=== PATIENT | female | born 1980 | race Caucasian/White ===

== ENCOUNTER 2022-09-27 08:04 | Emergency (ER) | payer OTHER, SELFPAY ==
[2022-09-27 08:15] VITALS: BP 110/57; PULSE 79; RESP 16; TEMP 36.6; O2SAT 100
--- NOTE | 2022-09-27 08:16 | ED.URI ---
HPI - URI/Sore Throat General Chief Complaint: Upper Respiratory Infection Stated Complaint: white spots on throat, sore throat Time Seen by Provider: 09/27/22 08:16 Source: patient Mode of arrival: ambulatory Limitations: no limitations History of Present Illness HPI Narrative: 42-year-old female presents with complaint of sore throat starting yesterday morning. Woke up today with neck pain, swollen glands. Positive fatigue. Afebrile. Denies nausea vomiting diarrhea. All systems reviewed and negative except as noted above. Related Data Home Medications Medication Instructions Recorded Confirmed buspirone 7.5 mg tablet 7.5 mg PO DAILY 09/27/22 09/27/22 Allergies Allergy/AdvReac Type Severity Reaction Status Date / Time No Known Allergies Allergy Unverified 09/27/22 08:13 Review of Systems Review of Systems: CONSTITUTIONAL: Denies fever, chills, or sweats. Reports fatigue. EYES: Denies visual changes, redness, or discharge. ENT: Denies rhinorrhea, congestion. Reports sore throat. Denies otalgia. CARDIOVASCULAR: Denies chest pain, palpitations, or edema. RESPIRATORY: Denies cough or dyspnea. GASTROINTESTINAL: Denies abdominal pain, nausea, vomiting, or diarrhea. GENITOURINARY: Denies dysuria or hematuria. SKIN: Denies rash or itching. MUSCULOSKELETAL: Denies back pain, joint pain, or myalgia. NEUROLOGIC: Denies headache, numbness, or weakness. PSYCHIATRIC: Denies anxiety or depression. All other systems reviewed are negative, except as documented in HPI. [facility] Past Medical History Medical History (Updated 09/27/22 @ 08:26 by Amisha Babin NP) Psoriasis (a type of skin inflammation) Surgical History Surgical History (Updated 08/22/19 @ 15:59 by Amy Israel) H/O dilation and curettage H/O eye surgery Social History Social History (Updated 08/22/19 @ 16:00 by Amy Israel) Smoking status: Never smoker Alcohol intake: current Comments At time of signature, agree with nursing past medical, surgical, social and family history. There is no relevant family history pertinent to the presenting complaint. Exam Narrative: GENERAL: This is a well-nourished, well-developed patient, in no apparent distress. HEAD: normocephalic, atraumatic. EYES: PERRL. Sclera clear/white. Vision is grossly intact. EARS: External ears normal, auditory canals clear and without drainage, TMs normal without perforation. Hearing grossly intact. NOSE: External nose normal with no obvious nasal discharge, nares without redness, no rhinorrhea. THROAT: Mucous membranes moist, erythema, exudates, tonsils 1+ bilaterally. NECK: Neck supple, non-tender without lymphadenopathy, masses or thyromegaly. CARDIOVASCULAR: Regular rate and rhythm without murmurs, gallops, or rubs. RESPIRATORY: Clear to auscultation. Breath sounds equal bilaterally. No wheezes, rales, or rhonchi. SKIN: warm, Dry, intact with no suspicious lesions or rash, good texture and turgor. NEURO: awake, alert, and oriented to person, place and time. There were no obvious focal neurologic abnormalities. EXTREMITIES: No joint tenderness, effusion, or edema noted. Course Course Level of Care: Express Care Visit Vital Signs Vital signs: Vital Signs Temperature 36.6 C 09/27/22 08:15 Pulse Rate 79 09/27/22 08:15 Respiratory Rate 16 09/27/22 08:15 Blood Pressure 110/57 L 09/27/22 08:15 Pulse Oximetry 100 09/27/22 08:15 Temperature 36.6 C 09/27/22 08:15 Pulse Rate 79 09/27/22 08:15 Respiratory Rate 16 09/27/22 08:15 Blood Pressure 110/57 L 09/27/22 08:15 Pulse Oximetry 100 09/27/22 08:15 Reviewed MDM - URI/Sore Throat MDM Narrative Medical decision making narrative: Patient is aware of diagnosis, understands and agrees to treatment plan. Anticipatory guidance given. Patient agrees to follow-up as directed and is aware of reasons to seek care at the emergency department. Portions of this record may have be
== END 2022-09-27 08:29 | disposition home or self-care (01) ==
PROVIDERS: Emergency Provider Nurse Practitioner Family
DX: J02.0 Streptococcal pharyngitis (principal)
CPT/HCPCS: 87880; 99203; G0463

== ENCOUNTER 2023-02-24 10:55 | Emergency (ER) | payer OTHER, SELFPAY ==
--- NOTE | 2023-02-24 10:56 | ED.FEMALEGU ---
HPI - Female Genitourinary General Chief complaint: Urogenital-Female Stated complaint: Painful & frequent urination; UTI? Time Seen by Provider: 02/24/23 10:56 Source: patient Mode of arrival: ambulatory Limitations: no limitations History of Present Illness HPI Narrative: Kristal is a 42-year-old female patient presenting to the clinic today with complaints of painful and frequent urination x 1 day. Just started her menses today. No known fever or chills. Denies any abdominal pain or flank pain. Related Data Home Medications Medication Instructions Recorded Confirmed buspirone 7.5 mg tablet 7.5 mg PO DAILY 09/27/22 02/24/23 ferrous sulfate 325 mg (65 mg 325 mg PO DAILY 02/24/23 02/24/23 iron) tablet (FeroSul) Allergies Allergy/AdvReac Type Severity Reaction Status Date / Time No Known Allergies Allergy Unverified 02/24/23 11:03 Review of Systems Review of Systems: Pertinent positives per HPI. Patient denies any fever, chills, rash, headache, visual changes, dizziness, cough, runny nose, sore throat, shortness of breath, chest pain, palpitations, nausea, vomiting, diarrhea, constipation, abdominal pain. PMFSH Past Medical History Medical History Psoriasis (a type of skin inflammation) Surgical History Surgical History H/O dilation and curettage H/O eye surgery Social History Social History Smoking status: Never smoker Alcohol intake: current Comments At the time of my signature, I reviewed and agree with the nursing past medical, surgical, social, and family history. There is no relevant family history pertinent to the patient complaint. Exam Narrative: General: Well-developed, well nourished, in no apparent distress. Head: Normocephalic, atraumatic. Cardio: Regular rate and rhythm, s1 and s2 normal, no murmur appreciated. Resp: Clear to auscultation bilaterally, no rhonchi, rales, wheezing or rubs. Abdomen: Soft, pliable, bowel sounds present in all quadrants, non-tender to palpation, no organomegly, no CVAT tenderness. Course Course Emergency Course: Portions of this record may have been created with voice recognition software. Level of Care: Express Care Visit Vital Signs Vital signs: Vital signs reviewed MDM - Female Genitourinary MDM Narrative Medical decision making narrative: At the time of visit patient is resting comfortably on the exam table. UA shows 2+ leukocytes and 3+ blood. Patient is currently on her menses. Will send in prescription for Bactrim and Pyridium. Supportive measures were discussed with the patient she voiced understanding discharge instructions and agrees to treatment plan. Differential Diagnosis Differential diagnosis: Likely urinary tract infection, cystitis and other (Pyelonephritis) Discharge Plan Discharge Clinical Impression: Urinary tract infection Qualifiers: Urinary tract infection type: acute cystitis Hematuria presence: with hematuria Qualified Code(s): N30.01 - Acute cystitis with hematuria Patient Disposition: Home, Self-Care Condition: Stable Instructions: Antibiotic Form, Urinary Tract Infection in Women (ED) Additional Instructions: UA dip positive for 2+ leukocytes and 3+ blood-patient currently on menses. Will send for culture Take Bactrim ds 1 tab every 12 hours x7 days Take Pyridium 1 tab every 8 hours as needed for bladder pain Increase fluids and stay well hydrated Wipe front to back. May use wet wipes. Avoid tub baths If sexually active- pee before and after intercourse. Wear cotton panties Avoid tight clothing up against the genitals Follow up with your PCP in 1 week if symptoms persist. Prescriptions: New sulfamethoxazole-trimethoprim [Bactrim DS] 800-160 mg tablet 1 tablet PO Q12H 7 Days
[2023-02-24 11:05] VITALS: BP 106/91; PULSE 73; RESP 16; TEMP 36.4; O2SAT 100
== END 2023-02-24 11:16 | disposition home or self-care (01) ==
PROVIDERS: Emergency Provider Nurse Practitioner Family; PCP Hospitalist
DX: N30.01 Acute cystitis with hematuria (principal); L40.9 Psoriasis, unspecified
CPT/HCPCS: 81003; 87077; 87086; 87186; 99213; G0463

== ENCOUNTER 2023-07-18 08:06 | Emergency (ER) | payer OTHER, SELFPAY ==
--- NOTE | 2023-07-18 08:14 | ED.URI ---
HPI - URI/Sore Throat General Chief Complaint: Upper Respiratory Infection Stated Complaint: Strep Symptoms Time Seen by Provider: 07/18/23 08:20 Source: patient, RN notes reviewed and old records reviewed Mode of arrival: ambulatory Limitations: no limitations History of Present Illness HPI Narrative: 43 year old female presents to [facility] care with complaints of sore throat for the past 2 days with loss of voice and some post nasal drainage. Patient reports that tested positive for strep last week and is presently on antibiotics.Patient reports that she has not taken any OTC medication for her symptoms. Patient reports no body aches, no fevers, no chills, denies any nausea or vomiting,does report some ear pressure. MD elicited complaint: cough, sore throat and other (loss of voice) Onset (ago): day(s) (2) Pain scale (0-10): 2 Able to tolerate fluids by mouth: Yes Treatments prior to arrival: none Related Data Home Medications Medication Instructions Recorded Confirmed buspirone 7.5 mg tablet 7.5 mg PO DAILY 09/27/22 07/18/23 Allergies Allergy/AdvReac Type Severity Reaction Status Date / Time No Known Allergies Allergy Unverified 07/18/23 08:15 Review of Systems Review of Systems: CONSTITUTIONAL: Denies malaise, chills, sweats, or fever. EYES: Denies visual changes, redness, or discharge. ENT: Reports rhinorrhea, congestion, no sinus pain, ear pressure and sore throat. CARDIOVASCULAR: Denies chest pain, palpitations, or edema. RESPIRATORY: Reports no cough.? Denies dyspnea. GASTROINTESTINAL: Denies abdominal pain, nausea, vomiting, diarrhea SKIN: Denies rash or itching. MUSCULOSKELETAL: Denies myalgia. NEUROLOGIC: Denies headache. All systems reviewed & are unremarkable except as noted in HPI and below PMFSH Past Medical History Medical History (Updated 07/18/23 @ 08:36 by Yasmin Perez NP) Anxiety Psoriasis (a type of skin inflammation) Surgical History Surgical History (Updated 07/18/23 @ 08:33 by Yasmin Perez NP) H/O dilation and curettage H/O eye surgery Lasik Family History Family History (Updated 07/18/23 @ 08:18 by Yasmin Perez NP) Father Skin cancer Social History Social History (Updated 07/18/23 @ 08:17 by Yasmin Perez NP) Smoking status: Never smoker Alcohol intake: current Substance use type: does not use Living arrangements: with family Gender identity (if verbalized by the patient): Female Comments At time of signature, agree with nursing past medical, surgical, social and family history. There is no relevant family history pertinent to the presenting complaint Exam Narrative: GENERAL: Well-appearing, well-nourished, and in no acute distress. HEAD: Normocephalic EYES: PERRLA, conjunctivae clear ENT: Nares clear, turbinates edematous and erythematous, clear discharge. Mucous membranes moist. TM pearly [place]aca with dull light reflex bilaterally; no tragal tenderness. Oropharynx erythematous without lesions. Tonsils not enlarged and without exudate, no drooling, no hoarseness, no trismus, uvula midline. postnasal drainage NECK: Supple. No lymphadenopathy CHEST: Clear to auscultation, breath sounds equal. No wheezing, rhonchi, rales, or stridor. No respiratory distress, speaks in full sentences. no cough SaO2 100% on room air HEART: Regular rate and rhythm. No murmur heard. SKIN: Warm, dry, no rash. NEURO: Alert and oriented x3. PSYCH: Normal mood and affect Course Course Emergency Course: Patient is aware of diagnosis, understands and agrees to treatment plan.? Anticipatory guidance given.? Patient agrees to follow-up as directed and is aware of reasons to seek care at the emergency department. Portions of this record may have been created with voice recognition software Level of Care: Express Care Visit Vital Signs Vital signs: Reviewed MDM - URI/Sore Throat MDM Narrative Medical decis
[2023-07-18 08:18] VITALS: BP 102/50; PULSE 71; RESP 16; TEMP 36.6; O2SAT 100
== END 2023-07-18 08:41 | disposition home or self-care (01) ==
PROVIDERS: Emergency Provider Registered Nurse; PCP Family Medicine
DX: J06.9 Acute upper respiratory infection, unspecified (principal); J02.9 Acute pharyngitis, unspecified; F41.9 Anxiety disorder, unspecified; L40.9 Psoriasis, unspecified
CPT/HCPCS: 87081; 87880; 99213; G0463

== ENCOUNTER 2024-01-14 00:45 | Day surgery (SDC) | payer OTHER, SELFPAY ==
[2024-01-05 09:23] VITALS: BMI 27.4
--- NOTE | 2024-01-05 09:29 | PC.NURSE ---
Report to the Outpatient Waiting Room, entrance under the green pavilion located off [facility], at time _1200_ on date _[id number]_. Planned Procedure Time: _2pm_. Time changes happen often and if your time is changed the preop area will call you the afternoon before. - You and your visitor will be asked to self-screen and do not enter if you have any COVID symptoms. - A mask is optional within the hospital at this time. Patients may have clear liquids (water, carbonated beverages, clear teas, apple juice) until 3 hours prior to surgery with a maximum of 20 ounces. - No food from midnight until time of surgery Take the following medications with a SIP of water the morning of surgery: ___Buspirone DO NOT STOP ANY OF YOUR OTHER PRESCRIPTION MEDICATIONS PRIOR TO SURGERY ?EXCEPT THE FOLLOWING Medications to discontinue per physician __Multivitamin___ Date to take last xzeb___[id number] Please no make-up, nail citizen of [place], hairspray, perfume, deodorant, or body powder the day of surgery. No jewelry (including any body piercings) or valuables the day of surgery, leave them at home. Please take a shower or bath the night before, or the morning of, surgery with an antibacterial soap. Wear comfortable, loose fitting clothing. - Jewelry must be removed prior to entering the operating room. Rings and piercings that are not removed may be cut off. - The hospital will not accept responsibility for valuables. - Please leave all valuables, including medications, at home the day of surgery. If you are going home after surgery, a licensed rental car ferry driver must drive you home. - NO public transportation without another adult if you receive anesthesia. - We recommend that an adult stay with you for 24 hours following discharge. - We also recommend that you do not drive, make important decision, drink alcoholic beverages, or take any drugs that were not prescribed by your health care provider for at least 24 hours after your discharge time. Follow any additional instructions given to you from your surgeon. If you or anyone in your household have experienced Covid symptoms in the past week, please notify your surgeon or the nurse liaison at the phone number below for possible testing. Telephone instructions given to __Kristal__and asked if any additional questions and then verbalized understanding. Patient advised to call surgeon office or pre surgery nurse liaison [phone] if any additional questions.
--- NOTE | 2024-01-14 11:24 | PM.IMHP ---
H&P: HPI History of Present Illness Date/Time: 01/14/24 11:24 Chief Complaint: Heavy periods Narrative: 43 y/o whose has had a vasectomy. Menses are monthly and heavy, lasting 5-6 days each. Trip has helped somewhat, but her bleeding has really been affecting her quality of life. She is interested in surgical management of her problem. Review of Systems Review of Systems: All systems reviewed & are unremarkable except as noted in HPI and below PMFSH Past Medical History Medical History Anxiety Psoriasis (a type of skin inflammation) Surgical History Surgical History H/O dilation and curettage H/O eye surgery Lasik Family History Family History Father Skin cancer Social History Social History Smoking status: Never smoker Alcohol intake: current Drinks per week: 1 Substance use type: does not use Living arrangements: with family Gender identity (if verbalized by the patient): Female Spiritual care concerns: No Meds Home Medications and Allergies Home Medications Medication Instructions Recorded Confirmed Type buspirone 7.5 mg tablet 7.5 mg PO DAILY 09/27/22 01/05/24 History multivitamin 1 tablet PO DAILY 01/05/24 01/05/24 History Allergies Allergy/AdvReac Type Severity Reaction Status Date / Time No Known Allergies Allergy Unverified 01/05/24 09:22 Exam Const: Orientation/consciousness: patient oriented x3 Other: Well-developed, well-nourished female in no acute distress. Neck: Thyroid: thyroid normal Lymphatic: no lymphadenopathy noted (in neck, axilla or inguinal nodes) Resp: Effort & Inspection: normal respiratory effort Auscultation: clear to auscultation bilaterally Cardio: Rate: regular rate Rhythm: regular rhythm Heart sounds: S1 normal heart sound present and S2 normal heart sound present GI: Other: ABD: Soft, nontender, nondistended. No guarding or rebound tenderness. No hepatosplenomegaly. : General: Yes no CVA tenderness Other: External genitalia: normal female hair distribution, without lesion. Urethral meatus: no lesion, non prolapsed. Bladder: no mass, nontender Vagina: well-estrogenized, without lesion or discharge. No cystocele or rectocele. Cervix: no lesion or discharge. Uterus: small, anteverted, freely mobile, nontender Adnexa: no mass or tenderness. Anus/perineum: no lesions, nontender Back/Spine/Pelvis: Back: no CVA tenderness Skin: General skin exam: normal color and no rashes or lesions noted Neuro: General: patient oriented x3 Extrem: Other: Extremities: nontender with no edema Psych: Mental Status: mental status grossly normal Affect: normal affect Assessment and Plan Assessment and plan (1) Menorrhagia: Code(s): N92.0 - Excessive and frequent menstruation with regular cycle Status: Acute Assessment and Plan: A: Menorrhagia. P: As above, she desires surgical management. Specifically, I have offered her hysteroscopy, dilation and sharp curettage, and endometrial ablation. She understands risks of surgery to include risks of anesthesia, risks of pain, infection, bleeding, blood products, thromboembolic phenomena and damage to adjacent structures such as bowel, bladder, ureters, blood vessels and nerves. She understands all these risks and elects to proceed with surgery.
[2024-01-14] MEDS: ACETAMINOPHEN 500 MG TABLET 1000 MG PO (12:48)
[2024-01-14 12:49] VITALS: BP 109/60; PULSE 69; RESP 16; TEMP 36.8; O2SAT 98
[2024-01-14] MEDS: LACTATED RINGERS 1,000 ML 30 ML IV CONT (12:55)
--- NOTE | 2024-01-14 13:17 | WPDHPUPDATE1 ---
History and Physical Update Update Date/Time: 01/14/24 13:17 History and Physical has been reviewed, including an updated exam of the patient. There are NO changes in the patient's condition. Risks, benefits, and alternatives have been discussed and questions answered. Patient agrees to proceed with procedure.
--- NOTE | 2024-01-14 13:21 | P.PNAN_ITS ---
Anes - Initial Pre Proc Eval Procedure: Operation Date: 01/14/24 14:00 Proposed Procedures p Hysteroscopy Dilation and Curettage with Mellissa Endometrial Ablation - Jagjit Bhatt MD Date/Time: 01/14/24 13:21 Surgeon: Jagjit Bhatt MD Pre Op Diagnosis: Irg Excessive Bleeding Patient Data Age: 43 Gender: F Height: 1.7 m Weight: 82.3 kg Last Vital Signs Temp 98.2 F 01/14/24 12:49 Pulse 69 01/14/24 12:49 Resp 16 01/14/24 12:49 BP 109/60 01/14/24 12:49 Pulse Ox 98 01/14/24 12:49 O2 Del Method Room Air 01/14/24 12:49 Allergies Allergy/AdvReac Type Severity Reaction Status Date / Time No Known Allergies Allergy Unverified 01/14/24 12:27 Home Medications Medication Instructions Recorded Confirmed Type buspirone 7.5 mg tablet 7.5 mg PO DAILY 09/27/22 01/14/24 History multivitamin 1 tablet PO DAILY 01/05/24 01/14/24 History Patient hx anesthesia problems: none Family hx anesthesia problems: none Results Review: All pre-operative results and documents have been reviewed as part of the pre- operative evaluation. [facility] Past Medical History Medical History Anxiety Psoriasis (a type of skin inflammation) Surgical History Surgical History H/O dilation and curettage H/O eye surgery Lasik Family History Family History Father Skin cancer Social History Social History Smoking status: Never smoker Alcohol intake: current Drinks per week: 1 Substance use type: does not use Living arrangements: with family Gender identity (if verbalized by the patient): Female Spiritual care concerns: No Anes - Eval Final PreProcedure Day of Procedure 01/14/24 13:21 Patient weight: normal Heart: regular rate and rhythm Lungs: clear to auscultation Airway: Mallampati scale Neurological: alert and oriented Last oral intake: >/= 8 hours ASA classification: I Emergent: no Anesthetic plan: proceed Anesthesia type and monitoring: general GIVS and standard monitoring Results Review: All pre-operative results and documents have been reviewed as part of the pre- operative evaluation. Informed Consent: The patient's anesthetic plan and its attendant risks and benefits were discussed with the patient/family/POA. Questions were solicited and answers provided to the satisfaction of the patient/family/POA.
[2024-01-14] MEDS: LIDOCAINE HCL 1% LOCAL INJ 20 ML VIAL 10 ML INFILTRATE (14:06)
--- NOTE | 2024-01-14 14:19 | W.PM.PROC2 ---
Procedure Note - Detailed Date of Procedure 01/14/24 Pre-op Diagnosis Menorrhagia Post-op Diagnosis Same Procedure Performed Hysteroscopy Dilation and sharp curettage Endometrial ablation Surgeon Jagjit Bhatt MD Anesthesia MAC and Local (1% lidocaine) Findings Unremarkable endometrium. Both tubal ostia seen. Description of Procedure The patient was taken to the operating room where she was prepared and draped in the usual sterile fashion in the dorsal lithotomy position. The bladder was drained with a red rubber catheter. A sterile speculum was placed into the vagina. The anterior lip of the cervix was grasped with single-tooth tenaculum. Ten mL of 1% lidocaine was administered in a paracervical block. The cervix was then gently dilated using Hegar dilators until a 7 mm dilator could be passed. Hysteroscopy was performed using sterile saline as a distention medium. Findings are as noted above. Sharp curettage was then performed, and endometrial curettings were collected on a Telfa pad and passed off to be sent to pathology. Finally, the the Mellissa device was advanced and endometrial ablation commenced without difficulty. The device was withdrawn and a second look was taken using the hysteroscope. Excellent coverage of the endometrial cavity was noted. The tenaculum was removed. Hemostasis was excellent. Sponge, lap, needle and instrument counts were correct. The patient was awakened and taken to the recovery room in stable condition. I was present and scrubbed through the entire procedure. Implants None Estimated Blood Loss 5 Drains No Packing No Pathology Yes (Endometrial curettings) Complications None Condition Stable Disposition PACU
[2024-01-14 14:20] VITALS: BP 92/35; PULSE 65; RESP 12; O2SAT 96
[2024-01-14 14:50] VITALS: BP 96/62; PULSE 60; RESP 16
[2024-01-14 15:20] VITALS: BP 101/56; PULSE 65; RESP 16
== END 2024-01-14 15:25 | disposition home or self-care (01) ==
PROVIDERS: PCP Family Medicine; Visit Provider Obstetrics & Gynecology
PROC: 0U5B8ZZ Destruction of Endometrium, Via Natural or Artificial Opening Endoscopic (ICD-10-PCS; CPT 58563; principal; 2024-01-14 14:00)
DX: N92.0 Excessive and frequent menstruation with regular cycle (principal); F41.9 Anxiety disorder, unspecified
CPT/HCPCS: 58563; 88305; A9270; J2250; J2405; J2704; J3010; J7120

== ENCOUNTER 2024-07-06 08:03 | Emergency (ER) | payer OTHER, SELFPAY ==
--- NOTE | 2024-07-06 08:04 | ED_ITS ---
HPI - URI/Sore Throat General Chief Complaint: Upper Respiratory Infection Stated Complaint: Sore Throat/Cough Time Seen by Provider: 07/06/24 08:04 Source: patient Mode of arrival: ambulatory Limitations: no limitations History of Present Illness HPI Narrative: Kristal is a 44-year-old female patient presenting to the clinic today with complaints of sore throat, chest congestion and a productive cough. She denies any chest pain shortness of breath. She denies any known fever. Symptoms have been going on for 8 days. Is coughing up some yellow mucus and blowing out yellow mucus from her nose. Has had exposure to strep and walking pneumonia. MD elicited complaint: cough, sore throat, nasal congestion, sinus pain and other (Chest congestion) Related Data Home Medications Medication Instructions Recorded Confirmed buspirone 7.5 mg tablet 7.5 mg PO DAILY 09/27/22 07/06/24 Allergies Allergy/AdvReac Type Severity Reaction Status Date / Time No Known Allergies Allergy Unverified 01/14/24 12:27 Review of Systems Review of Systems: Pertinent positives per HPI. Patient denies any fever, chills, rash, headache, visual changes, dizziness, shortness of breath, chest pain, palpitations, julian sea, vomiting, diarrhea, constipation, abdominal pain, or any urinary issues. [facility] Past Medical History Medical History Anxiety Psoriasis (a type of skin inflammation) Surgical History Surgical History H/O dilation and curettage H/O eye surgery Lasik Family History Family History Father Skin cancer Social History Social History Smoking status: Never smoker Alcohol intake: current Drinks per week: 1 Substance use type: does not use Living arrangements: with family Gender identity (if verbalized by the patient): Female Spiritual care concerns: No Comments At the time of my signature, I reviewed and agree with the nursing past medical, surgical, social, and family history. There is no relevant family history pertinent to the patient complaint. Exam Narrative: General: Well-developed, well nourished, in no apparent distress Head: Normocephalic, atraumatic Eyes: Pupils equally round and reactive to light bilaterally, EOM intact, sclera and conjunctive clear, no discharge, lids normal Ears: TMs intact and congested, ear canals clear, no drainage, grossly hearing normal. Nose: Nares patent, yellow nasal discharge, no inflammation, no sinus tenderness. Mouth: Oral pharynx red without lesions or masses, good dentition, MMM. Postnasal drip Neck: Supple, trachea midline, no enlargement of anterior or posterior cervical nodes, no thyroid masses or goiter palpable. Cardio: Regular rate and rhythm, s1 and s2 normal, no murmur appreciated. Resp: Clear to auscultation bilaterally, no rhonchi, rales, wheezing or rubs Course Course Emergency Course: Portions of this record may have been created with voice recognition software. Level of Care: Express Care Visit Vital Signs Vital signs: Vital Signs Temperature 36.4 C 07/06/24 08:20 Pulse Rate 77 07/06/24 08:20 Respiratory Rate 16 07/06/24 08:20 Blood Pressure 107/52 L 07/06/24 08:20 Pulse Oximetry 100 07/06/24 08:20 Temperature 36.4 C 07/06/24 08:20 Pulse Rate 77 07/06/24 08:20 Respiratory Rate 16 07/06/24 08:20 Blood Pressure 107/52 L 07/06/24 08:20 Pulse Oximetry 100 07/06/24 08:20 Vital signs reviewed MDM - URI/Sore Throat MDM Narrative Medical decision making narrative: At the time of visit patient is resting comfortably on the exam table. Patient appears to be nontoxic. Labs: Strep test was obtained and negative in the clinic today and sent to the lab for culture per patient request. Plan: I suspect patient has sinusitis. We will place the patient on azithro mycin and prednisone. Will place her on azithromycin to cover walking pneumonia she has had exposure as well as this will cover strep. Supportive measures were discussed with the patient and they voiced understanding discharge instructions and agrees to treatment plan. Return precautions reviewed Differential Diagnosis Differential diagnosis: Likely upper respiratory infection, otitis media, sinusitis, viral infection, bronchitis, influenza, pharyngitis and other (COVID) Lab Data Labs: Lab Results 07/06/24 Range/Units 08:20 POC Grp A Strep Screen Negative (Negative) Discharge Plan Discharge Clinical Impression: Sinusitis Qualifiers: Sinusitis location: maxillary Chronicity: acute Recurrence: non-recurrent Qualified Code(s): J01.00 - Acute maxillary sinusitis, unspecified Pharyngitis Qualifiers: Pharyngitis/tonsillitis etiology: unspecified etiology Qualified Code(s): J02.9 - Acute pharyngitis, unspecified Patient Disposition: Home, Self-Care Condition: Stable Instructions: Antibiotic Form, Pharyngitis (ED), Sinusitis (ED) Additional Instructions: Take prescription medications only as prescribed-azithromycin and prednisone Increase fluids and stay well hydrated Tylenol/motrin for pain/fever Flonase and OTC antihistamines as directed Vicks vapor rub to open sinuses Sinus rinses for congestion Cepacol spray, cough drops, throat lozenges, warm tea with honey/lemon, gargle salt water to soothe throat BRAT diet for diarrhea Clear liquids x 24 hours then advance as tolerated for nausea/vomiting Go to the ED if you develop a worsening in your condition- high fever not controlled by Tylenol or Motrin, dehydration, weakness, lethargy, shortness of breath, or chest pain. Follow up with your PCP in 3-5 days if symptoms persist. Prescriptions: New azithromycin 250 mg tablet See Rx Instructions .ROUTE .COMPLEX Qty: 6 0RF Rx Instructions: For 250 mg dose pack: take 500 mg today (day 1), then 250 mg for 4 days (days 2-5) prednisone 20 mg tablet 40 mg PO DAILY 5 Days Qty: 10 0RF No Action buspirone 7.5 mg tablet 7.5 mg PO DAILY Rx Instructions: Takes twice a day. Follow-up/Referrals: Anderson,Sumanth Victoria MD [Primary Care Provider] - Stand Alone Forms: Work/School Release IP Time of Disposition: 08:21 Quality NIHSS Nursing Documentation ED NIHSS nursing documentation: reviewed/agree
[2024-07-06 08:20] VITALS: BP 107/52; PULSE 77; RESP 16; TEMP 36.4; O2SAT 100
[2024-07-06 08:22] LABS: EDSTREPNEGPOS1 Negative (Negative)
== END 2024-07-06 08:25 | disposition home or self-care (01) ==
PROVIDERS: Emergency Provider Nurse Practitioner Family; PCP Family Medicine
DX: J01.00 Acute maxillary sinusitis, unspecified (principal); J02.9 Acute pharyngitis, unspecified; F41.9 Anxiety disorder, unspecified; L40.9 Psoriasis, unspecified
CPT/HCPCS: 87081; 87880; 99213; G0463

== ENCOUNTER 2025-04-05 10:35 | Emergency (ER) | payer OTHER, SELFPAY ==
--- OUTSIDE RECORDS SUMMARY | 2018-06-22 06:10 | XMS_ITS | Continuity of Care Document ---
Author Organization [facility] Address [address] [place] [address] Phone Care Team Providers Care Finisher Screwdown Name Role Phone Coleman Rosado MD Unavailable Unavailable Allergies, Adverse Reactions, Alerts Substance Reaction Status Criticality No Known Allergies Active No Inform ation Medications Medication Instructions Dosage Effective Dates (start - stop) Status Comments PROPRANOLOL HCL (unknown strength) take 2 tablet by oral route 3 times every day Not Available - Active Procedures Procedure Date OFFICE/OUTPATIENT VISIT, EST MRI JOINT UPR EXTREM W/O DYE (Shoulder/E lbow/Wrist/Scapula) XRAY WRIST, 3+ VIEWS OFFICE/OUTPATIENT VISIT, NEW Wrist cock-up non-molded OFFICE/OUTPATIENT VISIT, NEW DRAIN/INJECT, JOINT/BURSA KENALOG (TRIAMCINOLONE) PER 10 MG MARCAINE 30 ML X-RAY EXAM OF SHOULDER Advance Directives Directive Yes / No Effective Date File Name No Information Encounters Encounter Description Practice Location Reason(s) For Visit Diagnoses Date Provider Providers Copied on Encounter OFFICE/OUTPAT IENT VISIT, EST [facility], [address] [place] [address], [address], tel:[phone] CHEMO Watson right wrist pain (chief complaint) Right wrist pain 8 Ashlee Cee. [address], [place], [id number] , [place]. tel: [phone] [facility], [address] [place], [address], [place] tel:[phone] [facility] No Information 8 Ashlee Cee. [address], [place], [id number] , [place]. tel: [phone] Referring Provider: Coleman Melgar, [address] [place], [address] . tel:[phone] OFFICE/OUTPAT IENT VISIT, [facility], [address] [place] [address], [address], [place] tel:[phone] [facility] right wrist pain (chief complaint) Body mass index (BMI) 26.0-26.9, adultRight wrist pain 8 Ashlee Cee. [address], [place], [id number] , [place]. tel: [phone] [facility], [address] [place], [address], [place] tel:[phone] [facility] No Information 8 Ashlee Cee. [address], [place], [id number] , [place]. tel: [phone] Referring Provider: Coleman Melgar, [address] [place], [address] . tel:[phone] OFFICE/OUTPAT IENT VISIT, [facility], [address] [place], [address], [place] tel:[phone] [facility] Guillermo right shoulder pain (chief complaint) Traumatic arthropathy involving shoulder region Apr-2 3 Morley G. [address], [place], [id number] , [place]. tel: [phone] Referring Provider: Stacy Prakash [facility] [address] [place] [address], [address]. tel:[phone] Family History Family Member Type Diagnosis Age At Onset Mother Problem (finding) Diabetes mellitus Father Problem (finding) cancer Problem (finding) Family history of congenital heart disease Payers Payer name Insurance type Covered constitution party ID Rhys lemus(s) [email or web address] [facility] [id number] Social History Type Description Quantity Date Captured Comments Alcohol Use Details No Caffeine Use Details Unknown Tobacco Use Status Current non-smoker 18 Smoking Status Former smoker Non-Smoking Tobacco Use Details : No Details Available : No Details Available Sex Female Vital Signs Date / Time: Height Weight BMI Pulse Rate Blood Pressure Temperature Respiratory Rate Body Surface Area Head Circumference Head Circ. Percentile Wt./Judd. Percentile BMI percentile Pulse Ox Inhaled Ox 11:49 AM 65.00 in 68.039 kg (150.00 lbs) 24.9 6 kg/m jimer (2) Chief Complaint And Reason For Visit From encounter dated '06/22/2018 11:10'. right wrist pain (chief complaint). Description: Kristal De La Rosa is a 38 year old female. She presents with pain on the right side. The symptoms occur intermittently. Currently the patient states that the symptoms are mild- moderate. She rates her current pain as 3/10. The symptoms are aggravated by no specific activity. She denies having any associated symptoms. Patient returns today for MRI results. Reason For Referral Reason For Referral No Information Plan Of Treatment Date Type Action Status Goal Lifestyle education regardin g diet completed Referral Referred To: Wrist cock-up non-molded Ordered: Referrals: Wrist cock-up non-molded ordered History Of Present Illness Encounter Date Complaint History Of Prese nt Illness right wrist pain Kristal angela is a 38 year old female. She presents with pain on the right side. The symptoms occur intermittently. Currently the patient states that the symptoms are mild-moderate. She rates her current pain as 3/10. The symptoms are aggravated by no specific activity. She denies having any associated symptoms. Patient returns today for MRI results. right wrist pain Ms De La Rosa is a 38 year old female who complains of right wrist pain. She presents with pain on the right side. She states that the symptoms have been acute non-traumatic and began 3 months ago. The symptoms occur constantly with intermittent worsening. She rates her worst pain as 3/10. She rates her current pain as 1/10. The symptoms are aggravated by picking things up, gripping. Kristal states that the symptoms are relieved by rest. right shoulder pain Location: ri ght shoulder. Functional Status Date Functional Assessmen t Pain Score 3/10 Instructions Date Instruction Additional Infor mation Lifestyle education regarding di et Related to Body mass index (BMI) 26.0-26.9, adult Assessments Type Assessment Date assessment Right wrist pain Mental Status Date Cognitive Assessment Orientation - [place] ed to time, place, person, situation. Patient Care Teams Name Effective Dates (start - stop) Status Members No Information
[2025-04-05 10:40] VITALS: BP 123/68; PULSE 67; RESP 16; TEMP 36.7; O2SAT 100
--- OUTSIDE RECORDS SUMMARY | 2025-04-05 11:07 | XMS_ITS | Clinical Summary ---
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 Gender Identity Not on file Sexual Orientation Not on file Plan of Treatment Health Maintenance Due Date Last Done Comments Hepatitis C Virus (HCV) Screening 1981 Hepatitis B Immunization (1 of 3 - 19+ 3-dose series) 2000 Pap Smear 2002 Human Papillomavirus (HPV) Immunization (1 - 3-dose SCDM series) 2008 Cervical Cancer Screening (CCS) 2011 HPV/Cotest 2011 SARS-COV-2 Immunization ( season) 2024 07/06/2021, 09/24/2020, 09/02/2020 Influenza Immunization (#1) 2025 10/02/2021, 04/27/2020, 05/19/2019, Additional history exists Respiratory Syncytial Virus (RSV) Immunization (Adult) (1 - 1-dose 75+ series) 2056 TdaP Immunization Completed 09/08/2014, 01/30/2011 DTaP/Tdap/Td Immunization Discontinued 2020, 09/08/2014, 01/30/2011 Meningococcal Immunization (ACWY) Aged Out No longer eligible based on patient's age to complete this topic Pneumococcal Immunization Combined Aged Out No longer eligible based on patient's age to complete this topic Rotavirus Immunization Aged Out No lo nger eligible based on patient's age to complete this topic
--- OUTSIDE RECORDS SUMMARY | 2025-04-05 11:07 | XMS_ITS | Clinical Summary ---
Author Organization [facility] Address [address] [place] [address] Care Team Providers Care Bar Helper Name Role Phone Unavailable Primary Care Provider Unavailabl e Source Comments [facility],non-owned Affiliates and Associated Physician Practices is amultiple site organization consisting of ambulatory clinics and hospital sitesin [place], [place], [place] and [place]. This disclosure is being madepursuant to the Care Everywhere program and may not contain all information available regarding this patient. Last updated 18.[facility] Social History Tobacco Use Types Packs/Day Years Used Date Smoking Tobacco: Never Assessed Comments Unknown Sex and Gender Information Value Date Recorded Sex Assigned at Not on file Legal Sex Female 6:22 PM CDT Gender Identity Not on file Sexual Orientation Not on file Plan of Treatment Health Maintenance Due Date Last Done Comments LIPID TESTING 1981 MAMMOGRAM 1981 HIV SCREENING 1996 HEPATITIS C SCREENING 03/12/1999 DTAP/TDAP/TD VACCINES (1 - Tdap) 2000 HEPATITIS B VACCINE (1 of 3 - 19+ 3-dose series) 2000 PAP SMEAR 2002 HPV VACCINE (1 - 3-dose SCDM series) 2008 COVID-19 VACCINE (1 - 2023-2 5 season) 2024 DEPRESSION SCREENING 08/04/2024 INFLUENZA VACCINE (#1) 2025 ZOSTER VACCINE (1 of 2) 2031 HIB VACCINE Aged Out No longer eligi ble based on patient's age to complete this topic MENINGOCOCCAL (Group B) VACC INE SHARED DECISION-MAKING Aged Out No longer eligibl e based on patient's age to complete this topic MENINGOCOCCAL GROUPS A/C/Y/W VACCINE Aged Out No longer eligible b ased on patient's age to complete this topic PNEUMOCOCCAL VACCINE Aged Out No long er eligible based on patient's age to complete this topic Insurance Jayden [facility]KE [address] CARE Member Subscriber Plan / Payer (Ef fective 2020-Present) Name:Meghan Jaime Relation to Subscriber:Self Name:MEGHAN JAIME Payer ID:[id number] (NAIC) Type:HMO Address: [address] * Guarantor: MEGHAN JAIME Account Type Relation to Patient Date of Phone Billing Address Personal/Family [address] [place] [phone] SELF PAY NO INSURANCE Member Subscriber Plan / Payer (Ef fective for All Dates) Name:Meghan Jaime Member ID:Not on file Relation to Subscriber:Not on file Name:MEGHAN JAIME Subscriber ID:Not on file Address: [place] [address] Payer ID:Not on file Group ID:Not on file Type:Self Pay Address: [facility] * Guarantor: MEGHAN JAIME Account Type Relation to Patient Date of Phone Billing Address Personal/Family [address], [place] [address] SELF PAY NO INSURANCE Member Subscriber Plan / Payer (Ef fective for All Dates) Name:Meghan Jaime R Member ID:Not on file Relation to Subscriber:Not on file Name:MEGHAN JAIME Subscriber ID:Not on file Address: [place] [address] Payer ID:Not on file Group ID:Not on file Type:Self Pay Address: [facility] * Guarantor: MEGHAN JAIME Account Type Relation to Patient Date of Phone Billing Address Personal/Family [address] [place] [address] SELF PAY NO INSURANCE Member Subscriber Plan / Payer (Ef fective for All Dates) Name:Meghan Jaime R Member ID:Not on file Relation to Subscriber:Not on file Name:MEGHAN JAIME Subscriber ID:Not on file Address: [place] [address] Payer ID:Not on file Group ID:Not on file Type:Self Pay Address: [facility] [place] [phone]
--- OUTSIDE RECORDS SUMMARY | 2025-04-05 11:07 | XMS_ITS | Encounter Summary ---
Author Organization [facility] Address [address] [place] [address] Care Team Providers Care Recovery Agent Name Role Phone Unavailable Primary Care Provider Unavailabl e Encounter Details Date Type Department Care Team (Late st Contact Info) Description 12/22/2020 Lab Requisition [facility] [address] [place] [address] Issa Edouard MD [address] [place] [address] Social History Tobacco Use Types Packs/Day Years Used Date Smoking Tobacco: Never Assessed Comments Unknown Sex and Gender Information Value Date Recorded Sex Assigned at Not on file Legal Sex Female 6:22 PM CDT Gender Identity Not on file Sexual Orientation Not on file documented as of this encounter Plan of Treatment Not on file documented as of this encounter Procedures Procedure Name Priority Date/Time Associated Diagnosis Comments DERMATOPATHOLOGY Routine 12/20/2020 3:33 AM CDT documented in this encounter Results * DERMATOPATHOLOGY (12/20/2020 3:33 AM CDT) Case Report Dermatopathology Report Case: [id number] Authorizing Provider: Issa Edouard MD Collected: 12/20/2020 03:33 AM Ordering Location: [facility] Received: 12/22/2020 05:41 AM Pathologist: Shea Romero MD Specimen: Skin, left upper abdomen 11:31 AM CDT DERMATOPATHOLOGY LABORATORY Final Diagnosis Specimen A. SKIN, left upper abdomen: SEBORRHEIC KERATOSIS, IRRITATED AND INFLAMED (L82.0) 11:31 AM CDT DERMATOPATHOLOGY LABORATORY at 1131 CDT Clinical History SKvs molluscum vs BCCA. Path# [id number]. 11:31 AM CDT DERMATOPATHOLOGY LABORATORY Gross Description Specimen A: Received is one formalin filled container labeled with the patient's name and designated left upper abdomen. The specimen consists of a shave biopsy measuring [id number]. Jar 0. 11:31 AM CDT DERMATOPATHOLOGY LABORATORY Microscopic Description Specimen A. SKIN, left upper abdomen: Sections show acanthosis, papillomatosis, hyperkeratosis, and squamous eddies. There is a lymphohistiocytic infiltrate within the papillary dermis. 11:31 AM CDT DERMATOPATHOLOGY LABORATORY Disclaimer An external and internal positive and negative controls are appropriate for the histochemical, immunohistochemical and immunofluorescence stain(s) in this case (if any), except where stated explicitly. The performance characteristics of the stain(s) cited in this report were developed and its performance characteristic determined by the Dermatopathology Laboratory at [facility], directed by Dr. Sofia Betancur. These tests need not be, and therefore are not, approved by the [place] Food and Drug Administration. The tests are used for clinical purposes. Billing Codes Specimen Charges Stain Charges 97894 1 11:31 AM CDT DERMATOPATHOLOGY LABORATORY Embedded Images 11:31 AM CDT DERMATOPATHOLOGY LABORATORY Pathology/Cytolo gy TISSUE SPECIMEN FROM SKIN / Unknown 12/20/2020 3:33 AM CDT 12/22/2020 5:41 AM CDT us Issa Edouard MD LAB - PATHOLOGY/CYTOLOGY ORDER VIDA Final Result DERMATOPATHOLOGY LABORATORY [facility] - Department of Dermatology [address] [place] [address], [facility] [phone] documented in this encounter Visit Diagnoses Not on filedocumented in this encounter
--- OUTSIDE RECORDS SUMMARY | 2025-04-05 11:07 | XMS_ITS | Clinical Summary ---
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 Van Cdl Truck Driver Name Role Phone Sumanth Barron MD Primary Care Provider Allergies No known active allergies Medications cholecalciferol (VITAMIN D-3) 4,000 unit capsule Active multivitamin capsule Take 1 capsule by mouth daily Active busPIRone (BUSPAR) 7.5 mg tablet TAKE 1 TABLET TWICE A DAY 60 tablet 11 5 Active hydrocortisone 0.5 % ointmentIndicat ions:skin rash Apply topically 2 (two) times a day for 2 days 30 g 5 Active Active Problems Problem Noted Date Diagnosed Date Eyelid eczema, right 08/27/2024 Assessment & Plan (08/27/2024 10:[address] OPERATOR): Low-potency hydrocortisone x 3 days Keep appointment with derm If rash changes (vesicles) before derm appointment, we will shift to treating as shingles; let us know and start valacyclovir course Establishing care with new doctor, encounter for 04/28/2024 Assessment & Plan (04/28/2024 8:43 AM CDT): A(n) initial well visit to establish care has been performed today. Kristal Jaime is not up to date on screening tests. She is in need of hep B and Cholesterol screening. She is not up to date on needed preventative vaccinations; She is in need of Influenza. We discussed healthy lifestyle habits, educational material has been given. Medications reviewed, changes documented as per the medical record and discussed with patient along with risks vs benefits. Specific topics reviewed: drugs, ETOH, and tobacco, importance of regular dental care, importance of regular exercise, importance of varied diet, limit TV, media violence, minimize junk food, and seat belts. Return in 1 year Dyslipidemia 01/27/2023 Assessment & Plan (01/27/2023 3:32 PM CDT): Last lipid panel demonstrated moderately elevated total and LDL cholesterol; will recheck at next blood draw; encourage low-fat high-fiber diet Encounter for wellness examination 05/20/2022 Assessment & Plan (05/20/2022 4:09 PM CDT): Ordered CBC, cmp, lipid, hgb a1c, HIV, TSH, and free t4 Flu:completed Pap smear;follows with ob Mammo:scheduled for diagnostic mammo in Nov Forms completed for work F/u in 1 year for annual Menstrual migraine without s tatus migrainosus, not intractable 02/11/2019 Assessment & Plan (05/16/2023 1:19 PM CDT): Not well controlled, worsening menstrual cycles and headaches Follows Gynecology for management Will continue to monitor and provide support as needed Generalized anxiety disorder 02/11/2019 Assessment & Plan (05/16/2023 1:19 PM CDT): Stable, generally well controlled; no major issues Continue BuSpar 7.5 mg b.I.d. Assessment & Plan (01/27/2023 3:32 PM CDT): Stable, well controlled; patient reports she is previously on multiple complications due to anxiety, but now well controlled with current medications Continue BuSpar 7.5 mg b.i.d. Assessment & Plan (05/20/2022 3:53 PM CDT): Stable / clinically quiescent. Will continue to monitor. Change buspar to 7.5mg bid F/u prn Family history of first degr ee relative with bicuspid aortic valve 07/24/2017 Assessment & Plan (07/24/2017 8:[address] OPERATOR): Patient's son, age 8, recently diagnosed with bicuspid aortic valve. histology teacher has recommended all 1st degree relatives be screened with echocardiogram. We will proceed with 2D echocardiogram. Further direction pending these results. Patient has been instructed to contact the office if she has not heard from me within 3 days of having her testing completed. She offered no further complaints and was in agreement with the plan of care. Psoriasis 10/12/2012 Overview (11/08/2016): Other psoriasis Assessment & Plan (05/20/2022 3:53 PM CDT): Follows with dermatology Resolved Problems Problem Noted Date Diagnosed Date Resolved Date Chronic tension-type headach e, not intractable 02/10/2019 05/10/2021 Sinus pressure 11/26/2018 12/11/2018 Chronic sinusitis 11/26/2018 12/11/2018 Sacral back pain 03/03/2017 05/10/2021 Assessment & Plan (03/03/2017 5:21 PM CDT): Recommend x-ray of the lumbar sacral spine and coccyx. Further direction pending these results. I recommend physical therapy eval and treat. Patient is agreeable. Will place her on Medrol Dosepak for anti-inflammatory effect. She was also given Parafon Forte for use at HS as needed for muscle spasm/tension. She will return for close follow-up in 1 month. Further direction pending response to treatment. Immunizations Immunization Administration Dates Next Due Influenza, Quadrivalent, Spl it, Preservative Free, Intradermal 04/29/2016 Influenza, Quadrivalent, Spl it, Preservative Free, Intramuscular 04/24/2023,05/15/2022,05/10/2021,04/27,05/18/2019,05/21/2018 Influenza, Trivalent, IM (MDV) 5,06/04/2013,09/04/2012,07/07 Influenza, Trivalent, Preser vative Free, Intramuscular 05/25/2024,05/28/2017 Influenza, Unspecified 04/28/2023(Deferr ed: Patient Refused),08/04/2022(Deferred: Patient Refused),05/15/2022,05/28/2018 Pfizer SARS-CoV-2 Monovalent Vaccination (12+ Yrs) PURPLE 09/24/2020,09/02/2020 Td, adsorbed 11/29/2020 Tdap 09/08/2014,01/30/2011 Surgical History Surgery Date Site/Laterality Comments OTHER SURGICAL HISTORY 08/04/2008 - 08/03/2009 D&C LASIK Medical History Medical History Date Comments 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 Hx Other Medical 10/01/2010 child Allergic rhinitis Psoriasis Anxiety Family History Medical History Relation Name Comments No Known Problems Father Alzheimer's disease Maternal Grandfather Devin Kevin Other Maternal Grandfather Devin Kevin mesoth elioma; Diabetes Maternal Grandmother Lily Blanton Diabete s mellitus; Osteoarthritis Mother Thyroid disease Mother Alzheimer's disease Paternal Grandmother Alzheimer's Disease; Lung cancer Paternal Grandmother Cancer, lung; Breast cancer Neg Hx Ovarian cancer Neg Hx Thyroid cancer Neg Hx Relation Name Status Comments Father Maternal Grandfather Devin Kevin Maternal Grandmother Lily Blanton Mother Paternal Grandmother Social History Tobacco Use Types Packs/Day Years Used Date Smoking Tobacco: Never Cigarettes Smokeless Tobacco: Never Tobacco Cessation:Counseling Given: Not Answered Alcohol Use Standard Drinks/Week Comments Yes 1 (1 standard drink = 0.6 oz pur e alcohol) occasional Humiliation, Afraid, Rape, and Kick questionnair e Answer Date Recorded Within the last year, have y ou been afraid of your partner or ex-partner? No 04/28/2023 Within the last year, have y ou been humiliated or emotionally abused in other ways by your partner or ex-partner? No Within the last year, have y ou been kicked, hit, slapped, or otherwise physically hurt by your partner or ex-partner? No 04/28/2023 Within the last year, have y ou been raped or forced to have any kind of sexual activity by your partner or ex-partner? No 04/28/2023 Social Connection and Isolation Panel Answer Date Recorded In a typical week, how many times do you talk on the phone with family, friends, or neighbors? More than three times a week 04/28/2023 How often do you get togethe r with friends or relatives? More than three times a week 04/28/2023 How often do you attend chur or pentecostal services? More than 4 times per year 04/28/2023 Do you belong to any clubs o r organizations such as anabaptism groups, unions, fraternal or athletic groups, or school groups? No 04/28/2023 How often do you attend meet ings of the clubs or organizations you belong to? Never 04/28/2023 Are you , , di vorced, , never , or living with a partner? 04/28/2023 AUDIT-C Answer Date Recorded Q1: How often do you have a drink containing alc ohol? 2-4 times a month 04/28/2023 Q2: How many drinks containi ng alcohol do you have on a typical day when you are drinking? 1 or 2 04/28/2023 Q3: How often do you have si x or more drinks on one occasion? Never 04/28/2023 Overall Financial Resource Strain (CARDIA) Answe r Date Recorded How hard is it for you to pa y for the very basics like food, housing, medical care, and heating? Not hard at all 04/28/2023 PHQ-2 Answer Date Recorded PHQ-2 Total Score (If total score is 3 or more points, staff should administer the PHQ-9) 0 04/28/2024 [facility]ational Stress Questionnaire Answer Date Recorded Do you feel stress - tense, restless, nervous, or anxious, or unable to sleep at night because your mind is troubled all the time - these days? To some extent 04/28/2023 Exercise Vital Sign Answer Date Recorde d On average, how many days pe r week do you engage in moderate to strenuous exercise (like a brisk walk)? 4 days 04/28/2024 On average, how many minutes do you engage in exercise at this level? 40 min 04/28/2024 Hunger Vital Sign Answer Date Recorded Within the past 12 months, y ou worried that your food would run out before you got the money to buy more. Never true 04/28/20 23 Within the past 12 months, t he food you bought just didn't last and you didn't have money to get more. Never true 04/28/2023 PRAPARE - Transportation Answer Date Re corded In the past 12 months, has l ack of transportation kept you from medical appointments or from getting medications? No 04/05 In the past 12 months, has l ack of transportation kept you from meetings, work, or from getting things needed for daily living? No 04/28/2023 Housing Stability Vital Sign Answer Julius e Recorded In the last 12 months, was t here a time when you were not able to pay the mortgage or rent on time? No 04/28/2023 In the last 12 months, how many places have you lived? 1 04/28/2023 In the last 12 months, was t here a time when you did not have a steady place to sleep or slept in a group home (including now)? 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 Not on file Not on file Not on file Obstetrics History Para Term AB IAB SAB Ectopic Multiple Livin g Live Births 4 3 3 Date Outcome GA Total Labor Labor/2nd/3rd Weight Sex Type Anes PTL Richa A1 A5 Name Clin Term Term Term Last Filed Vital Signs Vital Sign Reading Time Taken Comments Blood Pressure 104/60 08/11/2024 11:[address] OPERATOR Pulse 61 08/11/2024 11:[address] OPERATOR Temperature 36 C (96.8 F) 08/11/2024 11:[address] OPERATOR Respiratory Rate 16 08/11/2024 11:[address] OPERATOR Oxygen Saturation 98% 08/11/2024 11:[address] OPERATOR Inhaled Oxygen Concentration - - Weight 90.7 kg (200 lb) 08/11/2024 11:[address] OPERATOR Height 170.2 cm (5' 7) 08/11/2024 11:[address] OPERATOR Body Mass Index 31.32 08/11/2024 11:[address] OPERATOR Plan of Treatment Health Maintenance Due Date Last Done Comments Hepatitis B Screening 1999 HPV Vaccines (1 - 3-dose SCDM series) 2008 Covid-19 Vaccine ( season) 2025 07/06/2021, 09/24/2020, 09/02/2020 Influenza Vaccine (#1) 2025 , 04/24/2023, 05/15/2022, Additional history exists Depression Screening 04/28/2025 04/28/2024, 04/28/2023, 04/28/2023, Additional history exists Regular Well Visit/Exam 18-64 04/28/2025 04/28/2024, 05/20/2022, 05/10/2021 Breast Cancer Screening-Mammogram 07/07/2025 07/07/2024, 06/30/2023, 12/31/2022, Additional history exists Cervical Cancer Screening 08/03/2025 11/21/2023 Po stponed from 11/20/2024 (Patient declined, but will receive in the future) DTaP/Tdap/Td Vaccine (4 - Td or Tdap) 11/29/2030 11/29/2020, 09/08/2014, 01/30/2011 Hepatitis C Screening Completed 10/12/2012 Pneumococcal vaccine <65 Aged Out No longer eligible based on patient's age to complete this topic Varicella Vaccines Discontinued Procedures Procedure Name Priority Date/Time Associated Diagnosis Comments DIAGNOSTIC MAMMOGRAM BILATERAL W VIKTOR Schedule Routine, Read Routine (OP Routine) 07/07/2024 9:[address] OPERATOR Abnormal mammogram of both breasts HM PAP SMEAR WITH HPV Routine 11/21/2023 4:13 PM CDT SERUM HEPATITIS C AB Routine 10/12/2012 3:34 PM CDT from Last 3 Months or Most Recently Relevant to Health Maintenance Results * Diagnostic Mammogram Bilateral W Viktor (07/07/2024 9:[address] OPERATOR) Anatomical Region Laterality Modality Breast Bilateral Mammography 07/07/2024 10:[address] OPERATOR Impressions 07/07/2024 11:[address] OPERATOR 1. Previously questioned asymmetry in the inner left breast at middle depth effaces with spot compression and is consistent with overlapping fibroglandular tissue. No mammographic evidence of malignancy in either breast. 2. Previously reported probably benign mass in the left breast at 3:00, 3 cm from the nipple has the appearance of normal fibroglandular tissue on today's exam. The finding is unchanged dating back to 07/01/2022 and benign. OVERALL FINAL ASSESSMENT: BI-RADS Category 2: Benign. RECOMMENDATION: Annual screening mammography is recommended. Dr. Freeman discussed the above findings and recommendations with the patient, who expressed her understanding of the management plan. Dictated by: Avril Freeman M.D. The radiology attending physician has personally reviewed this study, and had reviewed and/or edited this written report and agrees with it. Electronically signed by: Hyun Lechuga M.D. Narrative 07/07/2024 11:[address]PERATOR EXAMINATION: BILATERAL DIGITAL DIAGNOSTIC MAMMOGRAM INCLUDING CAD AND BILATERAL DIGITAL BREAST TOMOSYNTHESIS; LEFT BREAST SONOGRAM HISTORY: 44-year-old woman presenting for short interval follow-up of probably benign findings in the left breast. COMPARISON: 07/07/2024 bilateral mammogram and additional prior studies dating back to 2020. TECHNIQUE: Full field digital mammographic views of BOTH breasts were performed, including computer aided detection (CAD) and BILATERAL digital breast tomosynthesis (DBT). Directed ultrasound evaluation of the LEFT breast was performed. BREAST PARENCHYMAL COMPOSITION: The breasts are heterogeneously dense, which may obscure small masses. MAMMOGRAM FINDINGS: The previously questioned asymmetry in the inner left breast at middle depth effaces with spot compression and is consistent with overlapping fibroglandular tissue. There is no suspicious mass, architectural distortion or microcalcification suggestive of malignancy in either breast. SONOGRAM FINDINGS: Sonographic evaluation of the left breast at 3:00, 3 cm from the nipple demonstrates an unchanged oval hypoechoic mass measuring up to 0.3 cm in radial dimension (visualized on cine image #40) which is unchanged in appearance dating back to 07/01/2022 and has the appearance of normal fibroglandular tissue. There is no suspicious cystic or solid mass. Procedure Note Hyun Lechuga MD - 07/07/2024 EXAMINATION: BILATERAL DIGITAL DIAGNOSTIC MAMMOGRAM INCLUDING CAD AND BILATERAL DIGITAL BREAST TOMOSYNTHESIS; LEFT BREAST SONOGRAM HISTORY: 44-year-old woman presenting for short interval follow-up of probably benign findings in the left breast. COMPARISON: 07/07/2024 bilateral mammogram and additional prior studies dating back to 2020. TECHNIQUE: Full field digital mammographic views of BOTH breasts were performed, including computer aided detection (CAD) and BILATERAL digital breast tomosynthesis (DBT). Directed ultrasound evaluation of the LEFT breast was performed. BREAST PARENCHYMAL COMPOSITION: The breasts are heterogeneously dense, which may obscure small masses. MAMMOGRAM FINDINGS: The previously questioned asymmetry in the inner left breast at middle depth effaces with spot compression and is consistent with overlapping fibroglandular tissue. There is no suspicious mass, architectural distortion or microcalcification suggestive of malignancy in either breast. SONOGRAM FINDINGS: Sonographic evaluation of the left breast at 3:00, 3 cm from the nipple demonstrates an unchanged oval hypoechoic mass measuring up to 0.3 cm in radial dimension (visualized on cine image #40) which is unchanged in appearance dating back to 07/01/2022 and has the appearance of normal fibroglandular tissue. There is no suspicious cystic or solid mass. IMPRESSION: 1. Previously questioned asymmetry in the inner left breast at middle depth effaces with spot compression and is consistent with overlapping fibroglandular tissue. No mammographic evidence of malignancy in either breast. 2. Previously reported probably benign mass in the left breast at 3:00, 3 cm from the nipple has the appearance of normal fibroglandular tissue on today's exam. The finding is unchanged dating back to 07/01/2022 and benign. OVERALL FINAL ASSESSMENT: BI-RADS Category 2: Benign. RECOMMENDATION: Annual screening mammography is recommended. Dr. Freeman discussed the above findings and recommendations with the patient, who expressed her understanding of the management plan. Dictated by: Avril Freeman M.D. The radiology attending physician has personally reviewed this study, and had reviewed and/or edited this written report and agrees with it. Electronically signed by: Hyun Lechuga M.D. Sumanth Barron MD IMG MAMMO PROCEDURES Final Result * HM PAP SMEAR WITH HPV (11/21/2023 4:13 PM CDT) Historical Provider HEALTH MAINTENANCE Final Result * Serum Hepatitis C ab (10/12/2012 3:34 PM CDT) HCV ab Negative Negative HISTORICAL RESULTS Serum 10/12/2012 3:34 PM CDT Shayy Wu MD LAB BLOOD ORDERABLES Final Resul t HISTORICAL RESULTS from Last 3 Months or Most Recently Relevant to Health Maintenance Insurance [facility] CHO[facility] PL[facility] Care Teams Otr Van Cdl Truck Driver Relationship Specialty Start Date End Date Sumanth Barron MD [address] [facility] [address] [place] [address] PCP - General Family Medicine 07/10/23
--- OUTSIDE RECORDS SUMMARY | 2025-04-05 11:36 | XMS_ITS | Clinical Summary ---
Author Organization [facility] [employer] Address [address] [place] [address] Care Team Providers Care Contract Clerk Automobile Name Role Phone Unavailable Primary Care Provider Unavailabl e Source Comments [facility],non-owned Affiliates and Associated Physician Practices is amultiple site organization consisting of ambulatory clinics and hospital sitesin [place], [place], [place] and [place]. This disclosure is being madepursuant to the Care Everywhere program and may not contain all information available regarding this patient. Last updated 18.[facility] [employer] Social History Tobacco Use Types Packs/Day Years [...] to complete this topic Insurance Jayden PIKE [address] CARE Member Subscriber Plan / Payer (Ef fective 2020-Present) Name:Meghan Jaime Relation to Subscriber:Self Name:MEGHAN JAIME Payer ID:[id number] (NAIC) Type:HMO Address: [address] * Guarantor: MEGHAN JAIME Account Type Relation to Patient Date of Phone Billing Address Personal/Family [address] [place] [phone] SELF PAY NO INSURANCE Member Subscriber Plan / Payer (Ef fective for All Dates) Name:Meghan Jaime Member ID:Not on file Relation to Subscriber:Not on file Name:MEGHAN JAIME Subscriber ID:Not on file Address: [place] [address] Payer ID:Not on file Group ID:Not on file Type:Self Pay Address: [facility] * Guarantor: MEGHAN JAIME Account Type Relation to Patient Date of Phone Billing Address Personal/Family [address], [place] [address] SELF PAY NO INSURANCE Member Subscriber Plan / Payer (Ef fective for All Dates) Name:Meghan Jaime R Member ID:Not on file Relation to Subscriber:Not on file Name:MEGHAN JAIME Subscriber ID:Not on file Address: [place] [address] Payer ID:Not on file Group ID:Not on file Type:Self Pay Address: [facility] * Guarantor: MEGHAN JAIME Account Type Relation to Patient Date of Phone Billing Address Personal/Family [address] [place] [address] SELF PAY NO INSURANCE Member Subscriber Plan / Payer (Ef fective for All Dates) Name:Meghan aJime R Member ID:Not on file Relation to Subscriber:Not on file Name:MEGHAN JAIME Subscriber ID:Not on file Address: [place] [address] Payer ID:Not on file Group ID:Not on file Type:Self Pay Address: [facility] [place] [phone]
--- OUTSIDE RECORDS SUMMARY | 2025-04-05 11:36 | XMS_ITS | Clinical Summary ---
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
--- OUTSIDE RECORDS SUMMARY | 2025-04-05 11:36 | XMS_ITS | Clinical Summary ---
Author Organization [facility] Address [address] [place] [address] Care Team Providers Care Car Audio Installer Name Role Phone Sumanth Barron MD Primary [...] 08/27/2024 Assessment & Plan (08/27/2024 10:57 AM [facility]): Low-potency hydrocortisone x 3 days Keep appointment [...] 07/24/2017 Assessment & Plan (07/24/2017 8:33 AM [facility]): Patient's son, age 8, recently diagnosed with bicuspid aortic valve. 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 More than 4 times per year [...] staff should administer the PHQ-9) 0 [facility] - Occupational Stress Questionnaire Answer Date Recorded [...] on file Legal Sex Female 4:22 PM [facility] Gender Identity Not on file Sexual Orientation [...] Comments Blood Pressure 104/60 08/11/2024 11:37 AM [facility] Pulse 61 08/11/2024 11:37 AM [place] Temperature 36 C (96.8 F) 08/11/2024 11:37 AM [place] Respiratory Rate 16 08/11/2024 11:37 AM [place] Oxygen Saturation 98% 08/11/2024 11:37 AM [place] Inhaled Oxygen Concentration - - Weight 90.7 kg (200 lb) 08/11/2024 11:37 AM [facility] Height 170.2 cm (5' 7) 08/11/2024 11:37 AM [place] Body Mass Index 31.32 08/11/2024 11:37 AM [place] Plan of Treatment Health Maintenance Due Date [...] Read Routine (OP Routine) 07/07/2024 9:57 AM [place] Abnormal mammogram of both breasts HM PAP SMEAR WITH HPV Routine 11/21/2023 4:13 PM CDT SERUM HEPATITIS C AB Routine 10/12/2012 3:34 PM CDT from Last 3 Months or Most Recently Relevant to Health Maintenance Results * Diagnostic Mammogram Bilateral W Viktor (07/07/2024 9:57 AM [place]) Anatomical Region Laterality Modality Breast Bilateral Mammography 07/07/2024 10:3 7 AM [facility] Impressions 07/07/2024 11:16 AM [facility] 1. Previously questioned asymmetry in the inner [...] Hyun Lechuga M.D. Narrative 07/07/2024 11:16 AM [place] EXAMINATION: BILATERAL DIGITAL DIAGNOSTIC MAMMOGRAM INCLUDING CAD [...] Most Recently Relevant to Health Maintenance Insurance [facility] Address: [place] [address] [facility]/PPO Address: [place] [address] [facility] [employer] [facility] [facility] H[facility]/PPO Address: [facility] [id number] [place] [address] Care Teams Car Audio Installer Relationship Specialty Start Date End Date Sumanth Barron MD [address] [facility] [address] [place] [address] PCP - General Family Medicine 07/10/23
--- OUTSIDE RECORDS SUMMARY | 2025-04-05 11:36 | XMS_ITS | Encounter Summary ---
Author Organization 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 Role Phone Unavailable Primary Care Provider Unavailabl e Encounter Details Date Type Department Care Team (Late st Contact Info) Description 12/22/2020 Lab Requisition [facility] Derm[facility] [address] [place] [address] Issa Edouard MD [address] [place] [place] [address] Social History Tobacco Use Types [...] AM CDT) Case Report Dermatopathology Report Case: [id number] Authorizing Provider: Issa Edouard MD Collected: 12/20/2020 03:33 AM Ordering Location: [facility] Lab Received: 12/22/2020 05:41 AM Pathologist: Shea Romero MD Specimen: Skin, left upper abdomen 11:31 AM CDT DERMATOPATHOLOGY LABORATORY Final Diagnosis Specimen A. SKIN, left upper abdomen: SEBORRHEIC KERATOSIS, IRRITATED AND INFLAMED (L82.0) 11:31 AM CDT DERMATOPATHOLOGY LABORATORY at 1131 CDT Clinical History SKvs molluscum vs BCCA. Path# [id number]. 11:31 AM CDT DERMATOPATHOLOGY LABORATORY Gross Description Specimen A: Received is one formalin filled container labeled with the patient's name and designated left upper abdomen. The specimen consists of a shave biopsy measuring [id number]. Jar 0. 11:31 AM CDT DERMATOPATHOLOGY LABORATORY [...] characteristic determined by the Dermatopathology Laboratory at [facility], directed by Dr. Sofia Betancur. These tests need not be, and therefore are not, approved by the [place] Food and Drug Administration. The tests are used for clinical purposes. Billing Codes Specimen Charges Stain Charges 83336 1 11:31 AM CDT DERMATOPATHOLOGY LABORATORY Embedded Images 11:31 AM CDT DERMATOPATHOLOGY LABORATORY Pathology/Cytolo gy TISSUE SPECIMEN FROM SKIN / Unknown 12/20/2020 3:33 AM CDT 12/22/2020 5:41 AM CDT us Issa Edouard MD LAB - PATHOLOGY/CYTOLOGY ORDER VIDA Final Result DERMATOPATHOLOGY LABORATORY [facility] - Department of Dermatology [address] [place] [address], [facility] [phone] documented in this encounter Visit Diagnoses Not on filedocumented in this encounter
--- NOTE | 2025-04-05 11:58 | ED.GENADULT ---
HPI - General Adult General Chief complaint: Unspecified Stated complaint: bat exposure Time Seen by Provider: 04/05/25 10:54 Source: patient Mode of arrival: ambulatory Limitations: no limitations History of Present Illness HPI narrative: Patient is a 45-year-old female who presents the ED with report of bat exposure. Patient reports she was opening her pool umbrella yesterday and had her hand wedged inside to crank and open when a bat fell out. She states the bat was wet an abnormal appearing. If fell to the ground and laid there for several minutes before eventually flying off. Patient is unsure if she was bit by the batter notch. She does not have any noticeable bite wu on her right hand. [facility]ed the [facility] was referred to the ED for further evaluation. Related Data Home Medications ?Medication ?Instructions ?Recorded ?Confirmed ?Last Taken ?Type buspirone 7.5 mg tablet 7.5 mg PO DAILY 09/27/22 07/06/24 Unknown History Allergies Allergy/AdvReac Type Severity Reaction Status Date / Time No Known Allergies Allergy Unverified 01/14/24 12:27 Review of Systems Review of Systems: All systems reviewed & are unremarkable except as noted in HPI. All systems reviewed & are unremarkable except as noted in HPI and below PMFSH Past Medical History Medical History Anxiety Psoriasis (a type of skin inflammation) Surgical History Surgical History H/O eye surgery Lasik H/O dilation and curettage Family History Family History Father Skin cancer Social History Social History Smoking status: Never smoker Alcohol intake: current Drinks per week: 1 Substance use type: does not use Living arrangements: with family Gender identity (if verbalized by the patient): Female Spiritual care concerns: No Exam Narrative: GENERAL: Well appearing, well-nourished, non-toxic, in no acute distress. HEAD: Normocephalic, atraumatic. RESPIRATORY: Airway patent, respirations nonlabored. CARDIOVASCULAR: Regular rate and rhythm MUSCULOSKELETAL: Moves all extremities. No gross deformities. SKIN: Warm, dry, normal color. No wounds or rash. NEURO: A&O X3. Speech clear. PSYCHIATRIC: Appropriate mood and affect. Normal interaction. Course Vital Signs Vital signs: Vital Signs Temperature 98.0 F 04/05/25 10:40 Pulse Rate 67 04/05/25 10:40 Respiratory Rate 16 04/05/25 10:40 Blood Pressure 123/68 04/05/25 10:40 Pulse Oximetry 100 04/05/25 10:40 Temperature 98.0 F 04/05/25 10:40 Pulse Rate 71 04/05/25 12:43 Respiratory Rate 18 04/05/25 12:43 Blood Pressure 124/68 04/05/25 12:43 Pulse Oximetry 99 04/05/25 12:43 Medical Decision Making MDM Narrative Medical decision making narrative: Patient given rabies immunoglobulin and 1st rabies vaccine here in the ED. Infection control was notified. Given prescription for subsequent vaccines. Given return precautions. Medical Records Medical records reviewed: Yes I reviewed the external patient's medical records. Vital Signs Vital Signs: Vital Signs Temperature 98.0 F 04/05/25 10:40 Pulse Rate 67 04/05/25 10:40 Respiratory Rate 16 04/05/25 10:40 Blood Pressure 123/68 04/05/25 10:40 Pulse Oximetry 100 04/05/25 10:40 Temperature 98.0 F 04/05/25 10:40 Pulse Rate 71 04/05/25 12:43 Respiratory Rate 18 04/05/25 12:43 Blood Pressure 124/68 04/05/25 12:43 Pulse Oximetry 99 04/05/25 12:43 Discharge Plan Discharge Clinical Impression: Exposure to bat without known bite, Rabies, need for prophylactic vaccination against Patient Disposition: Home Condition: Stable Instructions: Antibiotic Form, Rabies (ED) Additional Instructions: Follow up with Infectious Disease for subsequent rabies vaccines on Days 3, 7, 14. Patient Language: Bur[place]ian Prescriptions: No Action buspirone 7.5 mg tablet 7.5 mg PO DAILY Rx Instructions: Takes twice a day. azithromycin 250 mg tablet See Rx Instructions .ROUTE .COMPLEX Qty: 6 0RF Rx Instructions: For 250 mg dose pack: take 500 mg today (day 1), then 250 mg for 4 days (days 2-5) prednisone 20 mg tablet 40 mg PO DAILY 5 Days Qty: 10 0RF Follow-up/Referrals: Anderson,Sumanth Victoria MD [Primary Care Provider, Unknown] Time of Disposition: 12:01
[2025-04-05] MEDS: RABIES VACCINE (RABAVERT) 2.5 UNITS VIAL IM (12:20)
[2025-04-05] MEDS: RABIES IMMUNE GLOBULIN 1800 UNITS IM (12:22)
[2025-04-05 12:43] VITALS: BP 124/68; PULSE 71; RESP 18; O2SAT 99
== END 2025-04-05 12:44 | disposition home or self-care (01) ==
PROVIDERS: Emergency Provider Physician Assistant; PCP Family Medicine
DX: Z20.3 Contact with and (suspected) exposure to rabies (principal); Z23 Encounter for immunization
CPT/HCPCS: 90375; 90471; 90675; 96372; 99283

== ENCOUNTER 2025-04-19 15:33 | Outpatient (RCR) | payer OTHER, SELFPAY ==
[2025-04-12] MEDS: RABIES VACCINE (RABAVERT) 2.5 UNITS VIAL IM (15:40)
[2025-04-19] MEDS: RABIES VACCINE (RABAVERT) 2.5 UNITS VIAL IM (15:40)
== END 2025-07-07 23:59 | disposition home or self-care (01) ==
LOC: ANHVASCINF 15:33
PROVIDERS: PCP Family Medicine; Visit Provider Physician Assistant
DX: Z20.3 Contact with and (suspected) exposure to rabies (principal); Z29.14 Encounter for prophylactic rabies immune globulin
CPT/HCPCS: 90471; 90675